=== PATIENT | male | born 1975 | race Caucasian/White ===

== ENCOUNTER 2017-01-02 20:12 | Inpatient (IN) | payer OTHER ==
[~2017-01-02] VITALS: Ht 175.3 cm; Wt 117.5 kg
[2017-01-02 20:20] VITALS: BP 168/109
--- NOTE | 2017-01-02 20:20 | NUR ---
Patient being evaluated by physician at [facility].
[2017-01-02] MEDS ORDERED: ASPIRIN 325 MG TAB PO ONE (20:25)
[2017-01-02] MEDS ORDERED: NITROGLYCERIN 0.4 MG TAB SL ONE (20:25)
[2017-01-02 20:52] LABS: BASOPHILS % (AUTO) 0.4 % (0.0-2.0); EOSINOPHILS # (AUTO) 0.1 K/uL (0-0.4); EOSINOPHILS % (AUTO) 1.2 % (0.0-4.0); HEMOGLOBIN 16.7 g/dL (12.0-18.0); LYMPHOCYTES # (AUTO) 0.9 K/uL (2.0-11.5); LYMPHOCYTES % (AUTO) 9.1 % (20.5-51.1); MEAN CORPUSCULAR HEMOGLOBIN 31 pg (27-31); MEAN CORPUSCULAR HGB CONC 34 g/dL (33-37); MEAN CORPUSCULAR VOLUME 93 fL (80-94); MONOCYTES # (AUTO) 0.2 K/uL (0.8-1.0); MONOCYTES % (AUTO) 2.3 % (1.7-9.3); NEUTROPHILS # (AUTO) 8.7 K/uL (1.8-7.7); PLATELET COUNT (AUTO) 278 K/uL (140-450); RED BLOOD CELL COUNT(AUTO) 5.37 MIL/uL (4.20-6.10); RED CELL DISTRIBUTION WIDTH 12.1 % (11.6-13.7); WHITE BLOOD COUNT (AUTO) 9.9 K/uL (4.8-10.8)
[2017-01-02] MEDS: NITROGLYCERIN 0.4 MG TAB SL PRN ×3 (20:59→23:01)
--- NOTE | 2017-01-02 21:08 | NUR ---
NTG x [address] Price kept informed on progress. No relief noted. Dr Price aware.
[2017-01-02 21:09] LABS: ANION GAP 11.9 (8-16); CARBON DIOXIDE 26.6 mmol/L (21-32); CREATININE 0.9 mg/dL (0.6-1.3); POTASSIUM 3.5 mmol/L (3.5-5.1)
[2017-01-02 21:15] LABS: ALBUMIN 4.4 g/dL (3.4-5.0); TOTAL BILIRUBIN 0.7 mg/dL (0.0-1.0); TOTAL PROTEIN, SERUM 8.3 g/dL (6.4-8.2)
--- NOTE | 2017-01-02 21:20 | NUR ---
MOVED TO ER BED
[2017-01-02 21:23] LABS: CREATINE KINASE MB 0.5 ng/mL (0-3.6)
--- NOTE | 2017-01-02 21:30 | NUR ---
41Y M PRESENTED TO ER C/O OF CHEST PAIN AND SOB. GIVEN NTG SL X3 IN [facility]. PT STILL C/O OF CHEST PAIN . NO DISTRESS NOTED. SR IN THE MONITOR. MONITOR CLOSELY.
[2017-01-02] MEDS ORDERED: ONDANSETRON 4 MG/2 ML VIAL IVP PRN (23:40)
[2017-01-02] MEDS ORDERED: ACETAMINOPHEN 325 MG TAB PO PRN (23:40)
[2017-01-02] MEDS ORDERED: DOCUSATE SODIUM 100 MG GELCAP PO PRN (23:40)
[2017-01-02] MEDS ORDERED: hydrALAZINE 20 MG/ML VIAL IVP ONE (23:45)
[2017-01-03] MEDS ORDERED: MORPHINE SULFATE 4 MG/ML SYR IVP ONE (00:05)
[2017-01-03 00:19] LABS: INR 1.1 (0.8-1.2); PARTIAL THROMBOPLASTIN TIME 27.9 secs (22-35.6)
--- NOTE | 2017-01-03 01:45 | NUR ---
RECEIVED REPORT FROM ED RN FOR CONTINUITY OF CARE. 41 Y.O. MALE BROUGHT TO UNIT WITH DX: CHEST PAIN. PATIENT IS A&OX4, DISCUSSED PLAN OF CARE WITH PATIENT, VERBALIZED UNDERSTANDING. SHIFT ASSESSMENT DONE, VS TAKEN, STABLE. NO S/S OF RESPIRATORY DISTRESS NOTED ON 2L NC. PATIENT STATES PAIN, WILL MEDICATE ORDERED. SKIN INTACT. MRSA SWAB COLLECTED AND WRISTBANDS APPLIED. ORIENTED PATIENT TO ROOM AND PLACED CALL LIGHT WITHIN REACH. FAMILY MEMBER AT BEDSIDE, WILL CONTINUE TO MONITOR.
[2017-01-03 02:00] VITALS: BP 136/84
--- NOTE | 2017-01-03 02:00 | NUR ---
Patient will be admitted to care of [facility]. Admited to TELE. Will go to room 119B. Belongings list completed. Report to IBRAHIMA SANCHEZ.
[2017-01-03] MEDS: NACL 0.9% 500 ML IV SCH ×2 (02:17→23:37)
[2017-01-03] MEDS: MORPHINE SULFATE 2 MG/ML SYR IVP PRN ×3 (02:18→21:36)
--- NOTE | 2017-01-03 02:18 | NUR ---
PT C/O LOWER BACK PAIN, MEDICATED PER MD ORDER. VS STABLE. CALL LIGHT WITHIN REACH.
[2017-01-03 03:11] LABS: APPEARANCE,URINE CLEAR (CLEAR); BILIRUBIN,URINE NEGATIVE (NEGATIVE); BLOOD, URINE 1+ (NEGATIVE); COLOR,URINE YELLOW (YELLOW); LEUKOCYTE ESTERASE ,URINE NEGATIVE (NEGATIVE); NITRITE, URINE NEGATIVE (NEGATIVE); PROTEIN,URINE 1+ (NEGATIVE); UGLUCOSE NEGATIVE (NEGATIVE); UROBILINOGEN,URINE 0.2 EU/dL (0.2 - 1)
[2017-01-03 03:33] LABS: BACTERIA,URINE FEW /HPF (None Seen); MUCUS,URINE 4+ /LPF (None Seen); SQUAMOUS EPITHELIAL CELL,UR 0-3 (FEW) /LPF (0-3 (FEW)); WBC,URINE 0-5 (RARE) /HPF (0-5)
[2017-01-03 04:00] VITALS: BP 133/73
[2017-01-03 04:01] LABS: CHOL/HDL RATIO 4.5 (1-4.5); FREE T4 (FREE THYROXINE) 0.99 ng/dL (0.76-1.46); THYROID STIMULATING HORMONE 1.42 uIU/mL (0.34-3.76)
--- NOTE | 2017-01-03 04:35 | NUR ---
VITAL SIGNS STABLE AT THIS TIME. PATIENT RESTING IN BED, NO S/S OF DISTRESS OR DISCOMFORT NOTED. CALL LIGHT WITHIN REACH, WILL CONTINUE TO MONITOR.
--- NOTE | 2017-01-03 06:01 | NUR ---
PT C/O LOWER BACK PAIN, MEDICATED PER MD ORDER. CALL LIGHT WITHIN REACH.
[2017-01-03] MEDS: HYDROcodone/APAP 5/325 MG 1 TAB TAB PO PRN (06:04)
[2017-01-03 06:22] LABS: BASOPHILS # (AUTO) 0.1 K/uL (0.00-0.22); BASOPHILS % (AUTO) 1.1 % (0.0-2.0); EOSINOPHILS # (AUTO) 0.1 K/uL (0-0.4); EOSINOPHILS % (AUTO) 0.7 % (0.0-4.0); HEMATOCRIT 47.6 % (36-52); HEMOGLOBIN 15.8 g/dL (12.0-18.0); LYMPHOCYTES # (AUTO) 1.7 K/uL (2.0-11.5); LYMPHOCYTES % (AUTO) 18.2 % (20.5-51.1); MEAN CORPUSCULAR HEMOGLOBIN 31 pg (27-31); MEAN CORPUSCULAR HGB CONC 33 g/dL (33-37); MEAN CORPUSCULAR VOLUME 93 fL (80-94); MONOCYTES % (AUTO) 10.8 % (1.7-9.3); NEUTROPHILS # (AUTO) 6.2 K/uL (1.8-7.7); NEUTROPHILS % (AUTO) 69.2 % (42.2-75.2); PLATELET COUNT (AUTO) 243 K/uL (140-450); RED BLOOD CELL COUNT(AUTO) 5.11 MIL/uL (4.20-6.10); RED CELL DISTRIBUTION WIDTH 12.1 % (11.6-13.7); WHITE BLOOD COUNT (AUTO) 9.1 K/uL (4.8-10.8)
[2017-01-03 06:36] LABS: ANION GAP 11.8 (8-16); CALCIUM 8.6 mg/dL (8.5-10.1); CARBON DIOXIDE 28.8 mmol/L (21-32); CREATININE 0.8 mg/dL (0.6-1.3); POTASSIUM 3.6 mmol/L (3.5-5.1)
[2017-01-03 06:43] LABS: MAGNESIUM 1.9 mg/dL (1.8-2.4); PHOSPHORUS 4.8 mg/dL (2.5-4.9)
--- NOTE | 2017-01-03 07:26 | NUR ---
ENDORSED PATIENT TO DAY RN FOR CONTINUITY OF CARE, PATIENT IS IN STABLE CONDITION.
--- NOTE | 2017-01-03 07:28 | NUR ---
RECEIVED REPORT FROM NIGHT RN. PT RESTING IN BED. AT BEDSIDE. AAOX4. NO S/S OF ACUTE DISTRESS. PT DENIES PAIN AT THIS TIME. IV SITE PATENT AND INTACT. ON O2 2L NC. CALL LIGHT WITHIN REACH. SAFETY MEASURES ENSURED. WILL CONTINUE TO MONITOR.
[2017-01-03 08:00] VITALS: BP 133/81
[2017-01-03] MEDS ORDERED: ASPIRIN 325 MG TABEC PO SCH (09:00)
[2017-01-03] MEDS ORDERED: FAMOTIDINE 20 MG TAB PO SCH (09:00)
[2017-01-03] MEDS ORDERED: ATORVASTATIN 20 MG TAB PO SCH (09:00)
[2017-01-03] MEDS: LISINOPRIL 10 MG TAB PO SCH (09:05)
[2017-01-03] MEDS: PANTOPRAZOLE 40 MG INJ VIAL IVP SCH (09:06)
--- NOTE | 2017-01-03 09:16 | NUR ---
PATIENT HAS BEEN SCREENED AND CATEGORIZED MODERATE NUTRITION RISK. PATIENT WILL BE SEEN WITHIN 3-5 DAYS OF ADMISSION. 01/05/17-01/07/[address]
[2017-01-03] MEDS ORDERED: methylPREDNISolone SS 125 MG/2 ML VIAL IVP SCH (09:20)
--- NOTE | 2017-01-03 10:33 | NUR ---
PT RESTING IN BED. NO S/S OF ACUTE DISTRESS. PT DENIES PAIN. CALL LIGHT WITHIN REACH. SAFETY MEASURES ENSURED. WILL CONTINUE TO MONITOR.
--- NOTE | 2017-01-03 11:53 | NUR ---
PT SLEEPING IN BED. NO S/S OF ACUTE DISTRESS. CALL LIGHT WITHIN REACH. WILL CONTINUE TO MONITOR.
[2017-01-03 12:00] VITALS: BP 128/75
[2017-01-03] MEDS ORDERED: PANTOPRAZOLE 40 MG INJ VIAL IVP SCH (12:00)
--- NOTE | 2017-01-03 14:05 | NUR ---
PT RESTING IN BED. NO S/S OF ACUTE DISTRESS. PREVIOUSLY MEDICATED FOR PAIN. CALL LIGHT WITHIN REACH. SAFETY MEASURES ENSURED. WILL CONTINUE TO MONITOR.
[2017-01-03 16:00] VITALS: BP 127/68
--- NOTE | 2017-01-03 19:12 | NUR ---
ENDORSED PLAN OF CARE TO NIGHT RN. PT REMAINS STABLE.
--- NOTE | 2017-01-03 19:30 | NUR ---
RECEIVED REPORT FROM DAY RN AT BEDSIDE, PATIENT IN STABLE CONDITION, PATIENT AAOX4 ON O2 2L NC, NO SOB OR SIGN OF DISTRESS, IV TO LEFT FA PATENT AND INTACT WITH IVF INFUSING WELL, SKIN INTACT, PATIENT DENIES PAIN AT THIS TIME, DISCUSSED PLAN OF CARE WITH PATIENT, PATIENT VERBALIZED UNDERSTANDING, SAFETY MEASURES CHECKED, CALL LIGHT WITHIN REACH. WILL CONTINUE TO MONITOR.
[2017-01-03 20:00] VITALS: BP 119/68
--- NOTE | 2017-01-03 20:30 | NUR ---
PM MEDS ADMINISTERED, PATIENT TOLERATED WELL, CALL LIGHT WITHIN REACH. WILL CONTINUE TO MONITOR
--- NOTE | 2017-01-03 22:30 | NUR ---
PATIENT RESTING IN BED, NO SOB OR SIGN OF DISTRESS AT THIS TIME, CALL LIGHT WITHIN REACH. WILL CONTINUE TO MONITOR.
[2017-01-04] VITALS: BP 111/57
--- NOTE | 2017-01-04 | NUR ---
VITAL SIGNS STABLE, PATIENT SLEEPING, NO SIGN OF DISTRESS, WILL CONTINUE TO MONITOR
--- NOTE | 2017-01-04 02:45 | NUR ---
PATIENT SLEEPING, NO SIGN OF DISTRESS, CALL LIGHT WITHIN REACH. WILL CONTINUE TO MONITOR
[2017-01-04 04:00] VITALS: BP 112/58
--- NOTE | 2017-01-04 04:30 | NUR ---
VITAL SIGN STABLE, NO SOB OR SIGN OF DISTRESS, WILL CONTINUE TO MONITOR
[2017-01-04 06:18] LABS: HEMATOCRIT 46.6 % (36-52); HEMOGLOBIN 15.4 g/dL (12.0-18.0); MEAN CORPUSCULAR HEMOGLOBIN 31 pg (27-31); MEAN CORPUSCULAR HGB CONC 33 g/dL (33-37); MEAN CORPUSCULAR VOLUME 93 fL (80-94); PLATELET COUNT (AUTO) 262 K/uL (140-450); RED BLOOD CELL COUNT(AUTO) 4.99 MIL/uL (4.20-6.10); RED CELL DISTRIBUTION WIDTH 12.2 % (11.6-13.7); WHITE BLOOD COUNT (AUTO) 8.1 K/uL (4.8-10.8)
[2017-01-04 06:49] LABS: ANION GAP 11.9 (8-16); CALCIUM 8.8 mg/dL (8.5-10.1); CARBON DIOXIDE 28.8 mmol/L (21-32); CREATININE 0.8 mg/dL (0.6-1.3); POTASSIUM 3.7 mmol/L (3.5-5.1)
[2017-01-04 06:52] LABS: BAND % (MANUAL) 3 % (0-8); NEUTROPHILS % (MANUAL) 52 (43-65)
[2017-01-04 06:53] LABS: EOSINOPHILS % (MANUAL) 1 % (0-4); LYMPHOCYTES % (MANUAL) 29 % (20-46); MONOCYTES % (MANUAL) 15 % (5-12); PLATELET ESTIMATE ADEQUATE
--- NOTE | 2017-01-04 07:30 | NUR ---
ENDORSED PATIENT TO DAY RN AT BEDSIDE, PATIENT IN STABLE CONDITION.
--- NOTE | 2017-01-04 07:35 | NUR ---
RECEIVED REPORT FROM DANIEL BOWERS. PT IS SLEEPING IN BED, BUT EASILY AWAKEN, PT IS AMBULATORY, IV ON THE LT FA, PATENT, INTACT, FLUSHING WELL, SKIN IS INTACT, NO S/S OF RESPIRATORY DISTRESS OR DISCOMFORT NOTED, SAFETY/FALL PRECAUTIONS ARE IN PLACE, DISCUSSED PLAN OF CARE, PT VERBALIZED UNDERSTANDING, CALL LIGHT IS WITHIN REACH, WILL CONTINUE TO MONITOR.
[2017-01-04 08:00] VITALS: BP 110/60
[2017-01-04] MEDS ORDERED: ATORVASTATIN 20 MG TAB PO SCH (09:00)
[2017-01-04] MEDS: LISINOPRIL 10 MG TAB PO SCH (09:00)
[2017-01-04] MEDS ORDERED: ASPIRIN 81 MG TAB.CHEW PO SCH (09:00)
--- NOTE | 2017-01-04 09:02 | NUR ---
PATIENT HAS BEEN SCREENED AND CATEGORIZED HIGH NUTRITION RISK. PATIENT WILL BE SEEN WITHIN 1-2 DAYS OF ADMISSION. 01/04/17-01/05/[address] Addendum: 01/04/17 at [address] ERROR - DISREGARD
[2017-01-04] MEDS: PANTOPRAZOLE 40 MG INJ VIAL IVP SCH (09:38)
--- NOTE | 2017-01-04 09:47 | NUR ---
DUE MEDICATIONS GIVEN, PT TOLERATED WELL, CALL LIGHT IS WITHIN REACH, WILL CONTINUE TO MONITOR.
--- NOTE | 2017-01-04 10:30 | NUR ---
PATIENT OFF UNIT TO HAVE STRESS TEST DONE. PT PUT ON HEP LOCK
[2017-01-04 12:00] VITALS: BP 117/74
--- NOTE | 2017-01-04 12:00 | NUR ---
PT IS RESTING IN BED, USING HIS CELL PHONE, CALL LIGHT WITHIN REACH.
[2017-01-04] MEDS: HYDROcodone/APAP 5/325 MG 1 TAB TAB PO PRN (13:16)
[2017-01-04] MEDS ORDERED: ATOR20TA40 PO (14:22)
[2017-01-04] MEDS ORDERED: METO25TE2 PO (14:22)
[2017-01-04] MEDS ORDERED: PANT40EC PO (14:25)
--- NOTE | 2017-01-04 14:30 | NUR ---
PT IS RESTING IN BED, TALKING ON HIS CELL PHONE, NO S/S OF RESPIRATORY DISTRESS OR DISCOMFORT NOTED, CALL LIGHT IS WITHIN REACH.
--- NOTE | 2017-01-04 16:25 | NUR ---
PT DISCHARGE INSTRUCTIONS GIVEN, ID WRIST BANDS REMOVED, IV REMOVED, CATHETER TIP INTACT, PT STABLE UPON DISCHARGE, ACCOMPANIED BY , PT STATED HE DID NOT WANT A WHEEL CHAIR AND WANTED TO WALK.
== END 2017-01-04 16:30 | disposition home or self-care (01) | DRG 391 ==
LOC: MED 20:12 → MTU 23:44
PROVIDERS: ADMIT Family Medicine; ATTEND Family Medicine
DX: K21.9 Gastro-esophageal reflux disease without esophagitis (principal); N17.0 Acute kidney failure with tubular necrosis; I16.0 Hypertensive urgency; R80.9 Proteinuria, unspecified; I10 Essential (primary) hypertension; E78.5 Hyperlipidemia, unspecified; E11.9 Type 2 diabetes mellitus without complications; I25.10 Atherosclerotic heart disease of native coronary artery without angina pectoris; G47.33 Obstructive sleep apnea (adult) (pediatric); J45.909 Unspecified asthma, uncomplicated; E66.9 Obesity, unspecified; Z87.891 Personal history of nicotine dependence; Z68.38 Body mass index [BMI] 38.0-38.9, adult; Z83.49 Family history of other endocrine, nutritional and metabolic diseases; Z82.49 Family history of ischemic heart disease and other diseases of the circulatory system
CPT/HCPCS: 36415; 71010; 80048; 80053; 81001; 82150; 82550; 82553; 83036; 83605; 83690; 83735; 83880; 84100; 84439; 84443; 84484; 85025; 85379; 85610; 85730; 87081; 87086; 93005; 93017; 96374; 99285; C9113; J1644; J2270; J2405; J7030